=== PATIENT | female | born 1980 | race American Indian/Alaskan Native ===

== ENCOUNTER 2018-08-11 13:46 | Emergency (ER) | payer OTHER ==
--- NOTE | 2018-08-11 14:01 | Emergency Department Report ---
Blank Doc - Documentation Documentation: This is a 37-year-old female that presents with sore throat. Stated has been taking Amox with no relief. This initial assessment/diagnostic orders/clinical plan/treatment(s) is/are subject to change based on patient's health status, clinical progression and re- assessment by fellow clinical providers in the ED. Further treatment and workup at subsequent clinical providers discretion. Patient/guardians urged not to elope from the ED as their condition may be serious if not clinically assessed and managed. Initial orders include: 1- Patient sent to [facility] for further evaluation and treatment 2- strep swab
[2018-08-11 14:02] VITALS: BP 117/74
[2018-08-11] MEDS ORDERED: DECADRON IM ONE (15:03)
[2018-08-11] MEDS ORDERED: BICILLIN L-A IM ONE (15:03)
[2018-08-11] MEDS ORDERED: MOTRIN PO ONE (15:03)
[2018-08-11] MEDS ORDERED: LIDOCAINE VISCOUS 2% PO ONE (15:04)
--- NOTE | 2018-08-11 15:09 | Emergency Department Report ---
Minor Respiratory - HPI Chief Complaint: Sore Throat Stated Complaint: N/V/WEAK Time Seen by Provider: 08/11/18 13:56 Duration: 2 Days Pain Location: Throat Severity: severe Minor Respiratory: Yes Sore Throat, Yes Able to Tolerate Fluids, Yes Fever, No Rhinorrhea, No Ear Pain, No Cough, No Sick Contacts, No Hemoptysis, No Chest Pain, No Shortness of Breath Other History: Ms. Tabares is a 37 yo female who presents with fever sore throat for 2 days. No cough or nasal congestion. ED Review of Systems ROS: Stated complaint: N/V/WEAK Other details as noted in HPI Constitutional: fever, malaise ENT: throat pain. denies: congestion Respiratory: denies: cough Cardiovascular: denies: chest pain ED Past Medical Hx - Past Medical History Previous Medical History?: Yes Hx Asthma: Yes - Surgical History Past Surgical History?: No - Social History Smoking Status: Current Every Day Smoker Substance Use Type: Alcohol - Medications Home Medications: Home Medications Medication Instructions Recorded Confirmed Last Taken Type Ibuprofen Oral Liqd [Motrin Oral 20 ml PO TID 4 Days #240 ml 08/11/18 Unknown Rx Liq 100 mg/5 ml] Minor Respiratory Exam - Exam General: Vital signs noted. No distress. Alert and acting appropriately. HEENT: Yes Pharyngeal Erythema, Yes Pharyngeal Exudates, Yes Moist Mucous Membranes, No Rhinorrhea, No Conjuctival Injection, No Frontal Tenderness, No Maxillary Tenderness Neck: Yes Adenopathy, Yes Supple Lungs: Yes Good Air Exchange, No Wheezes, No Ronchi, No Stridor, No Cough, No Labored Respirations, No Retractions, No Use of Accessory Muscles, No Other Abnormal Lung Sounds Heart: Yes Regular, No Murmur Abdomen: Yes Normal Bowel Sounds, No Tenderness, No Peritoneal Signs Skin: No Rash, No Edema Neurologic: Alert and oriented, no deficits. Musculoskeletal: Unremarkable. ED Course Vital Signs 08/11/18 13:57 Temperature 100.4 F H Pulse Rate 104 H Respiratory 16 Rate Blood Pressure 117/74 O2 Sat by Pulse 100 Oximetry ED Medical Decision Making - Medical Decision Making Streptococcal pharyngitis according to centor criteria Treated with Bicillin dexamethasone liquid ibuprofen and viscous lidocaine here in the ED. Prescribed ibuprofen liquid prescription Critical care attestation.: If time is entered above; I have spent that time in minutes in the direct care of this critically ill patient, excluding procedure time. ED Disposition Clinical Impression: Strep throat Disposition: DC-01 TO HOME OR SELFCARE Is pt being admited?: No Does the pt Need Aspirin: No Condition: Stable Instructions: Strep Throat (ED) Prescriptions: Ibuprofen Oral Liqd [Motrin Oral Liq 100 mg/5 ml] 20 ml PO TID 4 Days #240 ml Referrals: [facility] [Outside] - 3-5 Days
== END 2018-08-11 15:55 | disposition home or self-care (01) ==
LOC: ED 13:46
DX: J02.0 Streptococcal pharyngitis (principal); J45.909 Unspecified asthma, uncomplicated; F17.200 Nicotine dependence, unspecified, uncomplicated
CPT/HCPCS: 87116; 87430; 96372; 99284; J0561; J1100